=== PATIENT | male | born 1975 | race Caucasian/White ===

== ENCOUNTER 2016-05-05 10:29 | Day surgery (SDC) | payer OTHER ==
[~2016-05-05] VITALS: Ht 182.9 cm; Wt 109.0 kg
--- NOTE | 2016-06-05 12:10 | OR ---
ADMIT: 05/05/2016 RM/LOC: [facility] MR#: [id number] [address] NICOLA BARBOZA [address] [place] [address] Operative/Delivery Room Report SEX: M AGE: 40 : 1975 SURGERY DATE: 05/05/2016 SURGEON: Johnnie Suarez MD PREOPERATIVE DIAGNOSES: Chronic cholecystitis and cholelithiasis. POSTOP DIAGNOSES: Chronic cholecystitis and cholelithiasis. Final pathology pending. PROCEDURE: Laparoscopic cholecystectomy. MOBILE HOME INSTALLER: LACHO Macedo, who was necessary for adequate exposure, retraction, and completion of this case. ANESTHESIA: General endotracheal tube anesthesia. ESTIMATED BLOOD LOSS: Less than 30 mL. SPECIMEN: Gallbladder and contents to Pathology. INDICATION FOR PROCEDURE: Please see H and P. PROCEDURE IN DETAIL: After the risks, benefits, possible complications, and the alternatives had been explained, and informed consent had been obtained, the patient was taken back to the operating room, underwent general endotracheal tube anesthesia, and the surgical field was prepped and draped in a sterile manner. An infraumbilical incision was made. The Veress needle was inserted. The abdomen was insufflated with CO2. Once there was adequate insufflation, a 5-mm port was placed. The camera was placed through this port site. Under direct visualization, I then placed a 10 mm epigastric and two 5 mm right upper quadrant ports. The gallbladder was grasped, raised superiorly and anteriorly. Several stones within the thickened wall. Slowly dissected out the cystic duct and cystic artery. Clipped the artery first and it was ADMIT: 05/05/2016 RM/LOC: [facility] MR#: [id number] [address] NICOLA BARBOZA [address] [place] [address] Operative/Delivery Room Report SEX: M AGE: 40 : 1975 divided as seen in picture 2, kind of a long cystic duct. I tried to milk and see. I could not feel any obvious stones within the cystic duct, placed clips distally and proximally and it was divided. Then the gallbladder was removed from the liver bed using electrocautery and EndoShears. Placed in EndoCatch bag as seen in picture #4, removed through the epigastric port site. Inspecting the liver bed, there was good hemostasis. Irrigated and removed much irrigation as possible. I injected some 0.5% Marcaine in the incision sites for pain control. Closed the fascia of the epigastric port site with an 0 Polysorb suture using the suture passer, and then the skin was all closed with 4-0 Monocryl. Tolerated procedure well. He was being extubated when I left the room. He was in stable and satisfactory condition with all needle and lap counts correct x2. Johnnie Suarez MD/ thania JOB #: [id number] CC: Johnnie Suarez, Attending Physician Yajaira Taylor, Family Physician
== END 2016-05-05 17:34 | disposition home or self-care (01) ==
LOC: SSS 10:29
PROC: 0FT44ZZ Resection of Gallbladder, Percutaneous Endoscopic Approach (ICD-10-PCS; principal; 2016-05-05)
DX: K80.12 Calculus of gallbladder with acute and chronic cholecystitis without obstruction (principal); Z88.0 Allergy status to penicillin; Z88.2 Allergy status to sulfonamides; Z98.890 Other specified postprocedural states; Z79.899 Other long term (current) drug therapy